=== PATIENT | female | born 1950 | race Caucasian/White ===

== ENCOUNTER → 2019-05-24 14:07 | Outpatient (BNVA) | payer MEDICARE, SELFPAY | PROVIDERS: Family Provider Family Medicine; Visit Provider Family Medicine | DX: E03.9 Hypothyroidism, unspecified (principal); R35.0 Frequency of micturition; D64.9 Anemia, unspecified; E55.9 Vitamin D deficiency, unspecified; F41.9 Anxiety disorder, unspecified | CPT/HCPCS: 81003; 84443 ==

== ENCOUNTER → 2019-09-06 11:12 | Outpatient (BNVA) | payer MEDICARE, SELFPAY | PROVIDERS: Family Provider Family Medicine; Visit Provider Family Medicine | DX: E03.9 Hypothyroidism, unspecified (principal); F32.9 Major depressive disorder, single episode, unspecified; F41.9 Anxiety disorder, unspecified | CPT/HCPCS: 84443 ==

== ENCOUNTER → 2019-11-14 15:45 | Outpatient (BNVA) | payer MEDICARE, SELFPAY | PROVIDERS: Family Provider Family Medicine; PCP Family Medicine; Visit Provider Nurse Practitioner Family | DX: L02.415 Cutaneous abscess of right lower limb (principal); S81.851A Open bite, right lower leg, initial encounter; W54.0XXA Bitten by dog, initial encounter | CPT/HCPCS: 84450; 87070; 87077 ==

== ENCOUNTER → 2020-01-26 13:30 | Outpatient (BNVA) | payer MEDICARE, SELFPAY | PROVIDERS: Family Provider Family Medicine; PCP Family Medicine; Visit Provider Family Medicine | DX: Z11.59 Encounter for screening for other viral diseases (principal); Z20.828 Contact with and (suspected) exposure to other viral communicable diseases | CPT/HCPCS: 87635 ==

== ENCOUNTER → 2020-07-18 17:22 | Outpatient (BNVA) | payer MEDICARE, SELFPAY | PROVIDERS: Family Provider Family Medicine; PCP Family Medicine; Visit Provider Family Medicine | DX: E03.9 Hypothyroidism, unspecified (principal); N95.1 Menopausal and female climacteric states; F33.1 Major depressive disorder, recurrent, moderate | CPT/HCPCS: 80053; 84443; 85025 ==

== ENCOUNTER 2020-07-24 14:43 | Outpatient (CLI) | payer MEDICARE, SELFPAY ==
--- NOTE | 2020-07-24 14:59 | XR_ITS ---
WS: [id number] DEXA (DUAL ENERGY X-RAY ABSORPTIOMETRY) Bone mineral density was performed using a [employer] machine. HISTORY: N95.1 - Menopausal and female climacteric states COMPARISON: None available. Lumbar spine BMD (L1-L4): 0.965 g/cm2 T score: -1.8 Z score: 0.1 Total hip BMD: Left: 0.731 g/cm2. T score: -2.2 Z score: -0.6 Right: 0.758 g/cm2. T score: -2.0 Z score: -0.4 10 year probability of a major osteoporotic fracture is 10%. XR/XR DEXA axial skeleton* [id number] IMPRESSION: OSTEOPENIA based upon the WHO classification for females.
== END 2020-07-24 14:44 | disposition home or self-care (01) ==
PROVIDERS: PCP Family Medicine; Visit Provider Family Medicine
DX: N95.1 Menopausal and female climacteric states (principal); M85.89 Other specified disorders of bone density and structure, multiple sites
CPT/HCPCS: 77080

== ENCOUNTER → 2020-12-26 00:01 | Outpatient (BNVA) | payer MEDICARE, SELFPAY | PROVIDERS: PCP Family Medicine; Visit Provider Family Medicine | DX: R35.0 Frequency of micturition (principal); M62.838 Other muscle spasm; E03.9 Hypothyroidism, unspecified; Z68.24 Body mass index [BMI] 24.0-24.9, adult | CPT/HCPCS: 80053; 81000; 83735; 84443; 85025 ==

== ENCOUNTER → 2021-02-22 11:10 | Outpatient (BNVA) | payer MEDICARE, SELFPAY | PROVIDERS: PCP Family Medicine; Visit Provider Nurse Practitioner Family | DX: Z20.822 Contact with and (suspected) exposure to COVID-19 (principal); J02.9 Acute pharyngitis, unspecified; R05.9 Cough, unspecified; J06.9 Acute upper respiratory infection, unspecified | CPT/HCPCS: 87635 ==

== ENCOUNTER → 2021-03-20 10:37 | Outpatient (BNVA) | payer MEDICARE, SELFPAY | PROVIDERS: PCP Family Medicine; Visit Provider Family Medicine | DX: E03.9 Hypothyroidism, unspecified (principal); R53.83 Other fatigue | CPT/HCPCS: 80053; 80061; 82306; 82607; 84443; 85025 ==

== ENCOUNTER 2021-04-15 10:52 | Outpatient (CLI) | payer MEDICARE, MEDICAID, SELFPAY ==
--- NOTE | 2021-04-15 10:30 | MM_ITS ---
WS: [id number] BILATERAL DIGITAL SCREENING MAMMOGRAPHY WITH CAD CLINICAL INFORMATION: Z12.31 - Encounter for screening mammogram for malignant ... HISTORY: Screening mammogram. No current complaints. COMPARISON: TECHNIQUE: Bilateral CC and MLO views. FINDINGS: Bilateral breast reduction Scattered fibroglandular densities bilaterally. Scattered nodular breast tissue bilaterally similar i n appearance to previous. No suspicious focal mass, asymmetry, calcifications, or architectural disto rtion. No evidence of malignancy. MM/[place] [id number] IMPRESSION: BI-RADS: 2-Benign FOLLOW UP: 1 Year Follow-up Recommend return to annual screening mammography.
== END 2021-04-15 10:53 | disposition home or self-care (01) ==
LOC: RADSHAW 10:59
PROVIDERS: PCP Family Medicine; Visit Provider Family Medicine
DX: Z12.31 Encounter for screening mammogram for malignant neoplasm of breast (principal)
CPT/HCPCS: 77067

== ENCOUNTER → 2021-10-16 10:03 | Outpatient (BNVA) | payer MEDICARE, MEDICAID, SELFPAY | PROVIDERS: PCP Family Medicine; Visit Provider Family Medicine | DX: E03.9 Hypothyroidism, unspecified (principal); M25.511 Pain in right shoulder; Z00.00 Encounter for general adult medical examination without abnormal findings; M81.0 Age-related osteoporosis without current pathological fracture | CPT/HCPCS: 73030; 80053; 80061; 84443; 85025 ==

== ENCOUNTER 2021-11-18 10:44 | Outpatient (CLI) | payer MEDICARE, MEDICAID, SELFPAY | END 2021-11-18 10:45 | disposition home or self-care (01) | LOC: RAD 10:46 | PROVIDERS: PCP Family Medicine; Visit Provider Specialist | DX: M25.511 Pain in right shoulder (principal); M67.911 Unspecified disorder of synovium and tendon, right shoulder; M75.01 Adhesive capsulitis of right shoulder | CPT/HCPCS: 73030; 99204 ==

== ENCOUNTER 2022-01-15 15:02 | Outpatient (CLI) | payer MEDICARE, OTHER, SELFPAY ==
--- NOTE | 2022-01-15 15:15 | MR_ITS ---
WS: [id number] MRI RIGHT SHOULDER NONCONTRAST TECHNIQUE: Sagittal T2, coronal T1, T2 and proton density imaging. Axial gradient PDE imaging. CLINICAL INFORMATION: M67.911 - Unspecified disorder of synovium and tendon, ri... COMPARISON: None. FINDINGS: Moderate degenerative arthritis AC joint with edema. Slight subacromial spurring. Mild narrowing of t he subacromial space. Slight impingement on the distal supraspinatus with tendinopathy. Tiny intrasub stance undersurface tear involving the distal supraspinatus. Normal infraspinatus. Normal teres minor . Intrasubstance tear with tendinopathy involving the distal subscapularis. Tear of the intra-articular biceps tendon with T2 signal abnormality and tendinopathy. Distal biceps tendon located within the b icipital groove. Medial subluxation proximal biceps tendon with adjacent tear of the intra-articular segment. Diffuse tendinopathy involving the intra-articular biceps tendon with T2 signal abnormality. This extends the biceps labral anchor which appears grossly intact. Suspected small SLAP tear. Normal bone marrow signal in the humerus and glenoid. Small joint effusion. MR/MR shoulder RT wo con* [id number] IMPRESSION: 1. Moderate degenerative arthritis AC joint with mild edema. Tendinopathy in t he underlying supraspinatus with a tiny intrasubstance undersurface tear. 2. Tendinopathy with intrasubstance tear involving the distal subscapularis. 3. Medial subluxation of the proximal biceps tendon with tear of the intra-art icular segment with T2 signal abnormality. Intra-articular tendinopathy extends to the biceps labral anchor which appears grossly intact. 4. Suspected associated small SLAP tear. 5. Normal bone marrow signal in the humerus and glenoid.
== END 2022-01-15 15:03 | disposition home or self-care (01) ==
PROVIDERS: PCP Family Medicine; Visit Provider Specialist
DX: M19.011 Primary osteoarthritis, right shoulder (principal); M67.911 Unspecified disorder of synovium and tendon, right shoulder
CPT/HCPCS: 73221

== ENCOUNTER 2022-02-18 06:00 | Outpatient (RCR) | payer OTHER, SELFPAY | END 2022-03-05 23:59 | disposition home or self-care (01) | LOC: TPT 06:00 | PROVIDERS: PCP Family Medicine; Visit Provider Specialist | DX: M25.511 Pain in right shoulder (principal) | CPT/HCPCS: 97110; 97140; 97162 ==

== ENCOUNTER 2022-03-06 06:00 | Outpatient (RCR) | payer MEDICARE, OTHER, SELFPAY | END 2022-03-14 23:59 | disposition home or self-care (01) | LOC: TPT 06:00 | PROVIDERS: PCP Family Medicine; Visit Provider Specialist | DX: M25.511 Pain in right shoulder (principal) | CPT/HCPCS: 97110; 97164 ==

== ENCOUNTER → 2022-04-17 15:00 | Outpatient (BNVA) | payer MEDICARE, SELFPAY | PROVIDERS: PCP Family Medicine; Visit Provider Family Medicine | DX: L98.9 Disorder of the skin and subcutaneous tissue, unspecified (principal); R63.5 Abnormal weight gain; E03.9 Hypothyroidism, unspecified; M81.0 Age-related osteoporosis without current pathological fracture | CPT/HCPCS: 80053; 80061; 82306; 82607; 84443; 85025 ==

== ENCOUNTER → 2022-04-21 14:07 | Outpatient (BNVA) | payer MEDICARE, OTHER, SELFPAY | PROVIDERS: PCP Family Medicine; Visit Provider Specialist | DX: M67.911 Unspecified disorder of synovium and tendon, right shoulder (principal) | CPT/HCPCS: 99213 ==

== ENCOUNTER → 2022-05-13 13:41 | Outpatient (BNVA) | payer OTHER, SELFPAY | PROVIDERS: PCP Family Medicine; Referring Provider Family Medicine; Visit Provider Nurse Practitioner Family | DX: D48.9 Neoplasm of uncertain behavior, unspecified (principal); D18.01 Hemangioma of skin and subcutaneous tissue; D22.9 Melanocytic nevi, unspecified; L81.4 Other melanin hyperpigmentation | CPT/HCPCS: 88305; 88312 ==

== ENCOUNTER 2022-07-03 11:25 | Outpatient (CLI) | payer OTHER, SELFPAY ==
--- NOTE | 2022-07-03 11:34 | MM_ITS ---
WS: [id number] VIEWS: MLO and CC views both breasts. 3D digital tomosynthesis is also included in this exam. Comparison made with prior exam of 01/07/2013, 07/24/2015, 08/26/2016, 12/10/2018, 04/15/2021.. Findings: There was no sign of mass, architectural distortion or suspicious calcification in either breast. Sta ble appearing nodules and parenchymal densities noted bilaterally.Both breasts are heterogeneously d ense MM/[place] [id number] Impression: BI-RADS: 2-Benign FOLLOW-UP: 1 Year Follow-up This mammogram was also analyzed by the Computer Aided Detection System [employer]2 [employer].
== END 2022-07-03 11:26 | disposition home or self-care (01) ==
PROVIDERS: PCP Family Medicine; Visit Provider Family Medicine
DX: Z12.31 Encounter for screening mammogram for malignant neoplasm of breast (principal)
CPT/HCPCS: 77063; 77067

== ENCOUNTER → 2022-09-23 15:42 | Outpatient (BNVA) | payer MEDICARE, SELFPAY | PROVIDERS: PCP Family Medicine; Visit Provider Nurse Practitioner Family | DX: J40 Bronchitis, not specified as acute or chronic (principal); R05.9 Cough, unspecified | CPT/HCPCS: 71046 ==